=== PATIENT | female | born 1985 | race Two or more races ===

== ENCOUNTER 2022-10-04 09:00 | Outpatient (CLI) | payer OTHER | END 2022-10-04 09:04 | disposition home or self-care (01) | LOC: NUCLEAR 09:00 | PROVIDERS: ATTEND Internal Medicine Cardiovascular Disease | DX: I20.1 Angina pectoris with documented spasm (principal) ==

== ENCOUNTER 2024-09-28 20:35 | Emergency (ER) | payer OTHER ==
[~2024-09-28] VITALS: Ht 162.6 cm; Wt 53.5 kg
[2024-09-28] MEDS ORDERED: KETOROLAC TROMETHAMINE 60 MG VIAL IM STA (22:08)
[2024-09-28] MEDS ORDERED: ACETAMINOPHEN 500 MG GEL..CAP PO STA (22:10)
[2024-09-28] MEDS ORDERED: KETOROLAC TROMETHAMINE 60 MG VIAL IM ONE (22:14)
[2024-09-28] MEDS ORDERED: ACETAMINOPHEN 500 MG GEL..CAP PO ONE (22:14)
== END 2024-09-28 22:27 | disposition home or self-care (01) ==
LOC: ER 20:35
DX: G43.829 Menstrual migraine, not intractable, without status migrainosus (principal)

== ENCOUNTER 2024-10-02 17:22 | Emergency (ER) | payer OTHER ==
[~2024-10-02] VITALS: Ht 162.6 cm; Wt 53.5 kg
[2024-10-02] MEDS ORDERED: FAMOTIDINE/PF 20 MG/2 ML VIAL ONE ×2 (18:06→19:27)
[2024-10-02] MEDS ORDERED: FAMOTIDINE/PF 20 MG/2 ML VIAL IV PUSH STA (18:34)
[2024-10-02 19:51] LABS: BASO % 0.3 % (0.1-1.2); EOS # 0.01 (0.04-0.54); EOS % 0.3 % (0.7-7.0); HEMATOCRIT 40.6 % (34.1-44.9); HEMOGLOBIN 13.5 g/dL (11.2-15.7); LYMPH # 0.94 (1.18-3.74); LYMPH % 25.1 % (19.3-53.1); MEAN CORPUSCULAR HEMOGLOBIN 30.6 pg (25.6-32.2); MONO # 0.77 (0.24-0.82); NEUT # 2.02 (1.56-6.13); NEUT % 53.8 % (34.0-71.1); PLATELET COUNT 234 K/uL (163-369); RED BLOOD COUNT 4.41 M/uL (3.93-5.22); RED CELL DISTRIBUTION WIDTH 11.5 % (11.6-14.4)
[2024-10-02 20:03] LABS: MONO % 20.5 % (4.7-12.5)
[2024-10-02 20:10] LABS: ALBUMIN 3.8 gm/dL (3.4-5.0); BILIRUBIN TOTAL 0.46 mg/dL (0.3-1.2); CALCIUM 9.1 mg/dL (8.5-10.1); CREATININE SERUM 0.78 mg/dL (0.55-1.02); GFR 82.65; GLOBULINA 3.5 G/DL (2.4-3.5); POTASSIUM 4.69 mEq/L (3.5-5.1); TOTAL PROTEIN 7.3 gm/dL (6.4-8.2)
[2024-10-02 21:25] LABS: PH,URINE 5.5 (5.0-8.0); URINE APPEARANCE Clear; URINE BILIRRUBIN Negative (NEGATIVE); URINE BLOOD Trace; URINE COLOR Yellow; URINE GLUCOSE Negative (NEGATIVE); URINE KETONE Negative (NEGATIVE); URINE LEUKOCYTE Moderate; URINE NITRATE Negative; URINE PROTEIN Trace (NEGATIVE); URINE UROBILINOGEN 0.2 E.U./dl
[2024-10-02 21:28] LABS: URINE BACTERIA 802.8 uL (0.0-1933); URINE EPITHELIAL CELLS 25.1 uL (0.0-38.8); URINE WBC 109.6 uL (0.0-23.2)
[2024-10-02 21:44] LABS: URINE CAST 0.29 uL (0.0-1.40)
[2024-10-02 21:50] LABS: COVID-19 AG POSITIVE (NEGATIVE)
[2024-10-02] MEDS ORDERED: KETOROLAC TROMETHAMINE 30 MG VIAL IM STA (21:55)
[2024-10-02 21:56] LABS: INFLUENZA A AG NEGATIVE (NEGATIVE); INFLUENZA B AG NEGATIVE (NEGATIVE)
[2024-10-02] MEDS ORDERED: KETOROLAC TROMETHAMINE 30 MG VIAL ONE (22:07)
== END 2024-10-02 22:19 | disposition home or self-care (01) ==
LOC: ER 17:22
PROVIDERS: General Practice
DX: U07.1 COVID-19 (principal); K29.70 Gastritis, unspecified, without bleeding; R50.9 Fever, unspecified

== ENCOUNTER → 2025-03-21 | Emergency (ER) | payer OTHER ==
[~2025-03-21] VITALS: Ht 162.6 cm; Wt 54.4 kg
== END | disposition left against medical advice (07) ==
LOC: ER 13:07
DX: H66.90 Otitis media, unspecified, unspecified ear (principal); J06.9 Acute upper respiratory infection, unspecified